=== PATIENT | female | born 1990 | race Hispanic/Latino ===

== ENCOUNTER 2018-04-18 13:02 | Inpatient (IN) | payer BC, MEDICAID, OTHER ==
[2018-04-18 13:02] VITALS: BMI 21.9
[2018-04-18 14:08] LABS: HCG,QUALITATIVE URINE NEGATIVE (NEGATIVE)
[2018-04-18 14:09] LABS: URINE BILIRUBIN NEGATIVE (NEGATIVE); URINE BLOOD NEGATIVE (NEGATIVE); URINE CLARITY Clear (Clear); URINE COLOR Straw (YELLOW); URINE GLUCOSE (UA) NORMAL (Normal); URINE LEUKOCYTE ESTERASE NEG Leu/uL (Negative); URINE PROTEIN NEGATIVE (NEGATIVE); URINE UROBILINOGEN NORMAL mg/dL (0.2-1.0)
[2018-04-18 14:10] LABS: BASO # 0.1 K/uL (0.0-0.2); BASO % 0.9 % (0.0-2.0); EOS # 0.3 K/uL (0.0-0.7); EOS % 3.5 % (0.0-4.0); HEMOGLOBIN 14.7 g/dL (11.0-16.0); LYMPH % 27.8 % (20.0-40.0); MEAN CELL VOLUME 94.1 fL (81.0-99.0); MEAN CORPUSCULAR HEMOGLOBIN 32.9 pg (27.0-31.0); MEAN PLATELET VOLUME 7.7 fL (7.2-11.7); MONO # 0.5 K/uL (0.0-0.8); MONO % 6.6 % (0.0-10.0); NEUT # 4.5 K/uL (1.8-7.0); NEUT % 61.2 % (50.0-75.0); NRBC % 0.1 % (0.0-2.0); RBC 4.45 Mil/uL (3.80-5.20); RED CELL DISTRIBUTION WIDTH 12.5 % (11.5-14.5); WHITE BLOOD COUNT 7.3 K/uL (4.8-10.8)
[2018-04-18 14:15] LABS: BARBITURATES, UR NEGATIVE (NEGATIVE); PHENCYCLIDINE, UR NEGATIVE (NEGATIVE)
[2018-04-18 14:17] LABS: BENZODIAZEPINES, UR POSITIVE (NEGATIVE); OPIATES, UR POSITIVE (NEGATIVE)
[2018-04-18 14:27] LABS: ALB/GLOB RATIO 1.3 (1.0-2.1); ALBUMIN 5.2 g/dL (3.5-5.0); ALT/SGPT 81 U/L (9-52); AST/SGOT 117 U/L (14-36); BLOOD UREA NITROGEN 8 mg/dL (7-17); CALCIUM 9.7 mg/dl (8.6-10.4); GFR AFRICAN-AMERICAN > 60; GFR NON-AFRICAN AMERICAN > 60
--- NOTE | 2018-04-18 14:46 | C.PDOC ---
History Of Present Illness Pt is here requesting detox from Alcohol, Xanax and Heroin. Time Seen by Provider: 04/18/18 13:28 Chief Complaint (Nursing): Substance Abuse History Per: Patient Onset/Duration Of Symptoms: Days Current Symptoms Are (Timing): Still Present Suicide/Self Injury Attempted (Context): None Modifying Factor(s): Alcohol, Narcotics Severity: Moderate Associated Symptoms: denies: Suicidal Thoughts, Suicidal Plan Additional History Per: Family, Prior Records Past Medical History Reviewed: Historical Data, Nursing Documentation, Vital Signs Vital Signs: Last Vital Signs Temp 98.1 F 04/18/18 13:11 Pulse 109 H 04/18/18 13:11 Resp 20 04/18/18 13:11 BP 126/88 04/18/18 13:11 Pulse Ox 95 04/18/18 14:46 - Medical History PMH: Hepatitis (C) Surgical History: Tonsillectomy Family History: States: Unknown Family Hx - Social History Hx Tobacco Use: Yes Hx Alcohol Use: Yes Hx Substance Use: Yes Review Of Systems Except As Marked, All Systems Reviewed And Found Negative. Constitutional: Negative for: Fever, Weakness Cardiovascular: Negative for: Chest Pain Respiratory: Negative for: Shortness of Breath Gastrointestinal: Negative for: Vomiting, Abdominal Pain Musculoskeletal: Negative for: Neck Pain Skin: Negative for: Rash Neurological: Negative for: Weakness, Numbness, Seizures Physical Exam - Physical Exam Appears: Non-toxic, No Acute Distress Skin: Normal Color, Warm, Dry Head: Atraumatic, Normacephalic Eye(s): bilateral: Normal Inspection, PERRL, EOMI Neck: Normal ROM, Supple Cardiovascular: Rhythm Regular Respiratory: Normal Breath Sounds, No Accessory Muscle Use Gastrointestinal/Abdominal: Soft, No Tenderness Extremity: Normal ROM, No Deformity Neurological/Psych: Oriented x3, Normal Motor, Normal Sensation ED Course And Treatment - Laboratory Results Result Diagrams: 04/18/18 14:07 04/18/18 14:07 Urine POC: Negative O2 Sat by Pulse Oximetry: 95 Pulse Ox Interpretation: Normal Progress Note: Pt is medically stable for detox admission. Disposition Counseled Patient/Family Regarding: Studies Performed, Diagnosis, Smoking Cessation - Disposition Disposition: HOSPITALIZED Disposition Time: 14:59 Condition: STABLE - Clinical Impression Clinical Impression: Alcohol dependence, Opiate dependence, Benzodiazepine abuse Decision To Admit - Pt Status Changed To: Hospital Disposition Of: Inpatient - Admit Certification Admit to Inpatient:: After my assessment, the patient will require hospitalization for at least two midnights. This is because of the severity of symptoms shown, intensity of services needed, and/or the medical risk in this patient being treated as an outpatient. - InPatient: Physician Admission Certification: I certify that this patient requires 2 or more midnights of care for the following reason:: Detox. - . Bed Request Type: Detox Admitting Physician: Srinath Allen Patient Diagnosis: Alcohol dependence, Opiate dependence, Benzodiazepine abuse
[2018-04-18] MEDS ORDERED: Aluminum Hydroxide/Magnesium Hydroxide Susp (30 mL) PO PRN (15:19)
[2018-04-18 15:20] VITALS: RESP 18
--- NOTE | 2018-04-18 15:21 | PCM.BM ---
<Emily Perez - Last Filed: 04/18/18 15:19> Treatment Plan Problems - Problems identified on initial assessmt Potential for alcohol withdrawal Date Initiated: 04/18/18 Time Initiated: 15:19 Assessment reference: NA Status: Active Priority: 1 Potential for opiate withdrawal Date Initiated: 04/18/18 Time Initiated: 15:20 Assessment reference: NA Status: Active Priority: 2 Treatment assets and liabiliti Patient Assests: ADL independent, negotiates basic needs, cognitively intact Patient Liabilities: substance abuse (ETOH,cocaine, benzo, oiates) - Milieu Protocol Maintain good personal hygiene: daily Encourage regular showers, daily Remind patient to perform daily oral care, daily Assist patient to perform ADL's Conduct patient checks and document Observation sheet: Q15 minutes Maintain personal safety: every shift Educate patient to report safety concerns to staff, every shift Monitor environment for contraband/sharps Medication safety: Monitor for expected outcome, potential side effects: every shift, Assess barriers to learning: every shift, Assess readiness for medication education: every shift <Lucy Landon - Last Filed: 04/20/18 10:42> Family Contact Family involvement: Family/SO is involved Family contact: Patient agrees to contact - Goals for Treatment Patient goals for treatment: Complete detox and transition to IOP. Discharge/Continuing Care - Education Needs Education Needs: Family Medication, Family Diagnosis/Disease Process, Family Coping Skills, Family Anger Management skills, Family Placement options, Family Community resources, Patient Medication, Patient Diagnosis/Disease Process, Patient Coping Skills, Patient Anger Management skills, Patient Placement options, Patient Community resources - Discharge Discharge Criteria: No longer exhibiting s/s of withdrawal, Reduction of target symptoms Discharge to:: Home, With Family - Treatment Team Participation Patient/Family/SO Statement: 04/20/18 10:42 "I wanna go to outpatient when I'm done." Discussed with Family/SO: No Was Patient/Family/SO present at Treatment Team Meeting: Yes
[2018-04-18] MEDS: Multiple Vitamins Tab PO SCH (15:54)
[2018-04-19] MEDS: Multiple Vitamins Tab PO SCH (09:07)
[2018-04-19] MEDS ORDERED: Oxymetazoline 0.05% Nasal Spray (30 ml) NS SCH (11:00)
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
[2018-04-19] MEDS: Oxymetazoline 0.05% Nasal Spray (30 ml) NS SCH (21:02)
[2018-04-20] MEDS: Oxymetazoline 0.05% Nasal Spray (30 ml) NS SCH ×2 (09:08→21:05)
[2018-04-20] MEDS: Multiple Vitamins Tab PO SCH (09:09)
--- NOTE | 2018-04-20 10:11 | PCM.PYCHPN ---
Psychiatric Progress Note - Psychiatric Progress Note Patient seen today, length of contact: 16 min Patient Chief Complaint: "I want to leave early" Problems Identified/Issues Discussed: The pt is seen, chart reviewed, case discussed with staff. The pt is compliant with medications and reports no side-effects. Symptoms are improving but needs more time to stabilize. After care discussed, support and psychoeducation given. Medication Change: Yes (detox changes daily) Medical Record Reviewed: Yes Mental Status Examination - Cognitive Function Orientation: Person, Place, Situation, Time Memory: Intact Attention: WNL Concentration: WNL Association: WNL Fund of Knowledge: WNL - Mood Mood: Depressed, Anxious - Affect Affect: Broad - Speech Speech: Appropriate - Formal Thought Process Formal Thought Process: No Impairment - Suicidal Ideation Suicidal Ideation: No - Homicidal Ideation Homicidal Ideation: No Goal/Treatment Plan - Goal/Treatment Plan Need for Continued Stay: Discharge may exacerbated symptoms, Severe functional impairment Progress Toward Problem(s) and Goals/Treatment Plan: Taper with methadone and Ativan Gabapentin for augmentation Lexapro for depression and anxiety As needed medications All risks, benefits and alternatives of the meds discussed, and the pt agreed and understood. Attend groups and activities Supportive therapy and psychoeducation [place] for abstinence CBT for relapse prevention Encourage MAT Refer to rehab or IOP, and self-help groups Smoking cessation with [place] Nicotine patch if needed Estimated Date of D/C: 04/22/18
[2018-04-21 08:29] LABS: ALB/GLOB RATIO 1.2 (1.0-2.1); ALBUMIN 4.5 g/dL (3.5-5.0)
[2018-04-21] MEDS: Multiple Vitamins Tab PO SCH (09:19)
[2018-04-21] MEDS: Oxymetazoline 0.05% Nasal Spray (30 ml) NS SCH ×2 (10:19→21:29)
--- NOTE | 2018-04-21 11:35 | PCM.PYCHPN ---
Psychiatric Progress Note - Psychiatric Progress Note Patient seen today, length of contact: 16 min Patient Chief Complaint: "I am OK but anxious, I want to be on suboxone" Problems Identified/Issues Discussed: The pt is seen, chart reviewed, case discussed with staff. Support given, CBT and LA used briefly However, she is evasive and superficial at times No new symptoms reported, improving slowly and needs more time No SEs from medications, risks discussed. After care discussed Medication Change: Yes (detox changes daily) Medical Record Reviewed: Yes Mental Status Examination - Cognitive Function Orientation: Person, Place, Situation, Time Memory: Intact Attention: WNL Concentration: WNL Association: WN Fund of Knowledge: WN - Mood Mood: Depressed, Anxious - Affect Affect: Broad - Speech Speech: Appropriate - Formal Thought Process Formal Thought Process: No Impairment - Suicidal Ideation Suicidal Ideation: No - Homicidal Ideation Homicidal Ideation: No Goal/Treatment Plan - Goal/Treatment Plan Need for Continued Stay: Discharge may exacerbated symptoms, Severe functional impairment Progress Toward Problem(s) and Goals/Treatment Plan: Taper with methadone and Ativan Gabapentin for augmentation Lexapro for depression and anxiety As needed medications All risks, benefits and alternatives of the meds discussed, and the pt agreed and understood. Attend groups and activities Supportive therapy and psychoeducation [place] for abstinence CBT for relapse prevention Encourage MAT Refer to rehab or IOP, and self-help groups Smoking cessation with [place] Nicotine patch if needed Estimated Date of D/C: 04/22/18
[2018-04-22] MEDS: Oxymetazoline 0.05% Nasal Spray (30 ml) NS SCH (09:08)
[2018-04-22] MEDS: Multiple Vitamins Tab PO SCH (09:09)
[2018-04-22 09:43] VITALS: BP 118/80; PULSE 85; TEMP 98; O2SAT 99
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
== END 2018-04-22 10:15 | disposition home or self-care (01) | DRG 744 ==
LOC: C.ER 13:02 → C.7D 15:01
PROVIDERS: ADMIT Psychiatry & Neurology Psychiatry; ATTEND Psychiatry & Neurology Psychiatry
PROC: HZ2ZZZZ Detoxification Services for Substance Abuse Treatment (ICD-10-PCS; principal; 2018-04-18)
PROC: HZ52ZZZ Individual Psychotherapy for Substance Abuse Treatment, Cognitive-Behavioral (ICD-10-PCS; 2018-04-18)
PROC: HZ59ZZZ Individual Psychotherapy for Substance Abuse Treatment, Supportive (ICD-10-PCS; 2018-04-18)
PROC: HZ56ZZZ Individual Psychotherapy for Substance Abuse Treatment, Psychoeducation (ICD-10-PCS; 2018-04-18)
PROC: HZ42ZZZ Group Counseling for Substance Abuse Treatment, Cognitive-Behavioral (ICD-10-PCS; 2018-04-18)
PROC: HZ46ZZZ Group Counseling for Substance Abuse Treatment, Psychoeducation (ICD-10-PCS; 2018-04-18)
PROC: GZHZZZZ Group Psychotherapy (ICD-10-PCS; 2018-04-18)
PROC: GZ58ZZZ Individual Psychotherapy, Cognitive-Behavioral (ICD-10-PCS; 2018-04-18)
PROC: GZ56ZZZ Individual Psychotherapy, Supportive (ICD-10-PCS; 2018-04-18)
DX: F10.230 Alcohol dependence with withdrawal, uncomplicated (principal); B19.20 Unspecified viral hepatitis C without hepatic coma; Y90.6 Blood alcohol level of 120-199 mg/100 ml; F11.23 Opioid dependence with withdrawal; F13.20 Sedative, hypnotic or anxiolytic dependence, uncomplicated; F32.9 Major depressive disorder, single episode, unspecified; F43.10 Post-traumatic stress disorder, unspecified; F17.210 Nicotine dependence, cigarettes, uncomplicated; Z91.410 Personal history of adult physical and sexual abuse; F14.90 Cocaine use, unspecified, uncomplicated; F12.90 Cannabis use, unspecified, uncomplicated; F41.1 Generalized anxiety disorder

== ENCOUNTER 2018-05-27 13:16 | Emergency (ER) | payer MEDICAID, OTHER ==
[2018-05-27 13:25] VITALS: BMI 24.1
[2018-05-27 13:29] VITALS: BP 110/79; PULSE 105; RESP 16; TEMP 98.3; O2SAT 95
--- NOTE | 2018-05-27 14:17 | C.PDOC ---
History Of Present Illness 28 y/o female presents to ED c/o vague epigastric abdominal pain, nausea, and malaise. Pt was admitted in the past for substance abuse and detox. She reports drinking 4-5 beers a day. Notes her father is an active alcoholic and boyfriend of 4 years is also a substance abuser. Notes she has hepatitis C and has an outpatient follow up for liver ultrasound. Denies vomiting, diarrhea, or fever. Time Seen by Provider: 05/27/18 13:40 Chief Complaint (Nursing): Abdominal Pain History Per: Patient History/Exam Limitations: no limitations Onset/Duration Of Symptoms: Days Current Symptoms Are (Timing): Still Present Location Of Pain/Discomfort: Epigastric Radiation Of Pain To:: None Quality Of Discomfort: Cramping Associated Symptoms: Nausea. denies: Vomiting, Diarrhea, Loss Of Appetite, Back Pain, Chest Pain Exacerbating Factors: None Alleviating Factors: None Recent travel outside of the [place]: No Additional History Per: Patient Abnormal Vaginal Bleeding: No Past Medical History Reviewed: Historical Data, Nursing Documentation, Vital Signs Vital Signs: Last Vital Signs Temp 98.3 F 05/27/18 13:24 Pulse 105 H 05/27/18 13:24 Resp 16 05/27/18 13:24 BP 110/79 05/27/18 13:24 Pulse Ox 95 05/27/18 17:12 - Medical History PMH: Anxiety, Depression, Hepatitis (C), Post Traumatic Stress Disorder Denies: Diabetes, HIV, HTN, Seizures, Sexually Transmitted Disease Surgical History: Tonsillectomy - [facility] Procedures DETOXIFICATION SERVICES FOR SUBSTANCE ABUSE TREATMENT (04/18/18) GROUP EXPRESSIVE MUSIC THERAPIST FOR SUBSTANCE ABUSE TREATMENT, PSYCHOEDUCATION (04/18/18) GROUP EXPRESSIVE MUSIC THERAPIST FOR SUBSTANCE ABUSE, COGNITIVE BEHAVIORAL (04/18/18) GROUP PSYCHOTHERAPY (04/18/18) INDIV PSYCHOTHERAPY FOR SUBSTANCE ABUSE TREATMENT, SUPPORT (04/18/18) INDIV PSYCHOTHERAPY FOR SUBSTANCE ABUSE, COGNITIV BEHAVIORAL (04/18/18) INDIV PSYCHOTHERAPY FOR SUBSTANCE ABUSE, PSYCHOEDUCATION (04/18/18) INDIVIDUAL PSYCHOTHERAPY, COGNITIVE-BEHAVIORAL (04/18/18) INDIVIDUAL PSYCHOTHERAPY, SUPPORTIVE (04/18/18) Family History: States: Unknown Family Hx - Social History Hx Tobacco Use: Yes Hx Alcohol Use: Yes Hx Substance Use: Yes - Immunization History Hx Tetanus Toxoid Vaccination: No Hx Influenza Vaccination: No Hx Pneumococcal Vaccination: No Review Of Systems Except As Marked, All Systems Reviewed And Found Negative. Constitutional: Positive for: Malaise. Negative for: Fever, Chills Cardiovascular: Negative for: Chest Pain, Palpitations Respiratory: Negative for: Cough, Shortness of Breath Gastrointestinal: Positive for: Nausea, Abdominal Pain. Negative for: Vomiting , Diarrhea Genitourinary: Negative for: Dysuria, Frequency, Hematuria Musculoskeletal: Negative for: Back Pain Physical Exam - Physical Exam Appears: Non-toxic, No Acute Distress Skin: Normal Color, Warm, Dry Head: Atraumatic, Normacephalic Eye(s): bilateral: Other (pupillary mydriasis) Oral Mucosa: Moist Neck: Normal ROM, Supple Cardiovascular: Rhythm Regular, No Murmur Respiratory: Normal Breath Sounds, No Rales, No Rhonchi, No Wheezing Gastrointestinal/Abdominal: Soft, No Tenderness, No Guarding, No Rebound Back: No CVA Tenderness Extremity: Normal ROM Neurological/Psych: Oriented x3, Normal Speech ED Course And Treatment O2 Sat by Pulse Oximetry: 95 Pulse Ox Interpretation: Normal Medical Decision Making Medical Decision Making: nausea and malaise Taking Xanax 1 mg QID (Rx'd as TID) or more Librium 25 mg tabs taking QD only and not for ETOH w/d symptoms Recurrent Alcohol abuse: Drinking "4-5 beers" a day (likely more) to avoid w/d symptoms and because she is living with her father (as is the boyfriend) who is a relapsed alcoholic also drinking large volume beer Suboxone: buying Suboxone 4 mg tabs QD on the [address] though recently detoxed "planning" to call Sub[facility]one Clinic tomorrow (has not since d/c "because I forgot " d/w Crisis no Detox/female beds available today preg neg. Pulilary dilation: suspect persistent narcotics abuse in addition to suboxone use- which would explain nausea, malaise, and pupilary mydriasis. triple sedation using Xanax (over prescribed) Librium, alcohol/beer and Suboxone may explain pt's persistent malaise. Disposition Doctor Will See Patient In The: Office Counseled Patient/Family Regarding: Studies Performed, Diagnosis - Disposition Referrals: Alcoholics Anonymous [Outside] [facility] [Outside] [facility] [Outside] [facility] [Outside] [facility] [Outside] Jose Carney Jr., MD [Medical Doctor] - Disposition: HOME/ ROUTINE Disposition Time: 14:18 Condition: GOOD Additional Instructions: nausea and malaise Taking Xanax 1 mg QID (Rx'd as TID) or more Librium 25 mg tabs taking QD only and not for ETOH w/d symptoms This is a TRIPLE Sedating regimen (xanax, Librium and beer) STOP Alcohol use. Take the Xanax 1 mg tabs ONLY three times a day as prescribed Recurrent Alcohol abuse: Drinking "4-5 beers" a day (likely more) to avoid w/d symptoms and because she is living with her father (as is the boyfriend) who is a relapsed alcoholic also drinking large volume beer Take the Librium 25 mg tabs every 4-6 hours as needed for alcohol withdrawal symptoms Go to Alcoholics Anonymous Meetings DAILY as available. Outpatient Hepatology (Specializing in patients with Hep C) and outpatient liver scans- Go to Outpatient Testing to schedule your imaging studies to be performed STOP Alcohol use- this is MUCH worse for your Hepatitis C liver damage- this is why Librium is prescribed. Pulilary dilation: suspect persistent narcotics abuse in addition to suboxone use- which would explain nausea, malaise, and pupilary mydriasis. Avoid narcotics use: Seek Suboxone Clinic- call [facility] to be enrolled. You already have the phone number and referral. Social: You should NOT be living with an actively drinking alcoholic. This will make your alcohol abstinence very difficult. Seek alternative living circumstances. Instructions: Alcohol Use - When Is Drinking a Problem?, Fatigue (DC), Polysubstance Abuse (DC) Forms: [employer] (Macedonian) - Clinical Impression Clinical Impression: Polysubstance abuse, Nausea, Malaise and fatigue - Scribe Statement The provider has reviewed the documentation as recorded by the Scribe KP All medical record entries made by the Scribe were at my direction and personally dictated by me. I have reviewed the chart and agree that the record accurately reflects my personal performance of the history, physical exam, medical decision making, and the department course for this patient. I have also personally directed, reviewed, and agree with the discharge instructions and disposition.
[2018-05-27 14:36] LABS: SQUAMOUS EPITHIAL 67 /hpf (0-5); URINE BACTERIA RARE (<OCC); URINE BILIRUBIN 1+ (NEGATIVE); URINE BLOOD NEGATIVE (NEGATIVE); URINE CLARITY Hazy (Clear); URINE COLOR Amber (YELLOW); URINE GLUCOSE (UA) NORMAL (Normal); URINE LEUKOCYTE ESTERASE 1+ Leu/uL (Negative); URINE PROTEIN 2+ mg/dL (NEGATIVE)
== END 2018-05-27 14:49 | disposition home or self-care (01) ==
LOC: C.ER 13:16
DX: R11.0 Nausea (principal); R53.81 Other malaise; R53.83 Other fatigue; F19.10 Other psychoactive substance abuse, uncomplicated

== ENCOUNTER 2018-06-11 19:00 | Inpatient (IN) | payer OTHER ==
[2018-06-11 19:01] VITALS: BMI 24.1
[2018-06-11] MEDS ORDERED: Sodium Chloride 0.9% 500 ML IV ONE (19:24)
--- NOTE | 2018-06-11 19:27 | C.PDOC ---
Chief Complaint (Nursing): Substance Abuse Past Medical History Vital Signs: Last Vital Signs Temp 98.0 F 06/11/18 19:07 Pulse 85 06/11/18 19:07 Resp 24 06/11/18 19:07 BP 138/78 06/11/18 19:07 Pulse Ox 98 06/11/18 19:07 - Medical History PMH: Anxiety, Depression, Hepatitis (C), Post Traumatic Stress Disorder Denies: Diabetes, HIV, HTN, Seizures, Sexually Transmitted Disease Surgical History: Tonsillectomy - [facility] Procedures DETOXIFICATION SERVICES FOR SUBSTANCE ABUSE TREATMENT (04/18/18) GROUP BUNDLING MACHINE OPERATOR FOR SUBSTANCE ABUSE TREATMENT, PSYCHOEDUCATION (04/18/18) GROUP BUNDLING MACHINE OPERATOR FOR SUBSTANCE ABUSE, COGNITIVE BEHAVIORAL (04/18/18) GROUP PSYCHOTHERAPY (04/18/18) INDIV PSYCHOTHERAPY FOR SUBSTANCE ABUSE TREATMENT, SUPPORT (04/18/18) INDIV PSYCHOTHERAPY FOR SUBSTANCE ABUSE, COGNITIV BEHAVIORAL (04/18/18) INDIV PSYCHOTHERAPY FOR SUBSTANCE ABUSE, PSYCHOEDUCATION (04/18/18) INDIVIDUAL PSYCHOTHERAPY, COGNITIVE-BEHAVIORAL (04/18/18) INDIVIDUAL PSYCHOTHERAPY, SUPPORTIVE (04/18/18) Family History: States: Unknown Family Hx - Social History Hx Tobacco Use: Yes Hx Alcohol Use: Yes Hx Substance Use: Yes - Immunization History Hx Tetanus Toxoid Vaccination: No Hx Influenza Vaccination: No Hx Pneumococcal Vaccination: No ED Course And Treatment O2 Sat by Pulse Oximetry: 98 Disposition - Disposition
--- NOTE | 2018-06-11 19:28 | C.PDOC ---
History Of Present Illness 28 year old female presents to the ER requesting substance detox. Patient complains of vomiting and anxiety. Patient states last heroin use was this morning. She denies any SI/HI, hallucinations, SOB, chest pain, or any other complaints. Chief Complaint (Nursing): Substance Abuse History Per: Patient History/Exam Limitations: no limitations Onset/Duration Of Symptoms: Hrs Current Symptoms Are (Timing): Still Present Suicide/Self Injury Attempted (Context): None Modifying Factor(s): Narcotics Associated Symptoms: Anxiety. denies: Suicidal Thoughts Past Medical History Reviewed: Historical Data, Nursing Documentation, Vital Signs Vital Signs: Last Vital Signs Temp 98.0 F 06/11/18 19:07 Pulse 85 06/11/18 19:07 Resp 24 06/11/18 19:07 BP 138/78 06/11/18 19:07 Pulse Ox 98 06/11/18 20:35 - Medical History PMH: Anxiety, Depression, Hepatitis (C), Post Traumatic Stress Disorder Denies: Diabetes, HIV, HTN, Seizures, Sexually Transmitted Disease Surgical History: Tonsillectomy - [facility] Procedures DETOXIFICATION SERVICES FOR SUBSTANCE ABUSE TREATMENT (04/18/18) GROUP BANQUET PREP COOK FOR SUBSTANCE ABUSE TREATMENT, PSYCHOEDUCATION (04/18/18) GROUP BANQUET PREP COOK FOR SUBSTANCE ABUSE, COGNITIVE BEHAVIORAL (04/18/18) GROUP PSYCHOTHERAPY (04/18/18) INDIV PSYCHOTHERAPY FOR SUBSTANCE ABUSE TREATMENT, SUPPORT (04/18/18) INDIV PSYCHOTHERAPY FOR SUBSTANCE ABUSE, COGNITIV BEHAVIORAL (04/18/18) INDIV PSYCHOTHERAPY FOR SUBSTANCE ABUSE, PSYCHOEDUCATION (04/18/18) INDIVIDUAL PSYCHOTHERAPY, COGNITIVE-BEHAVIORAL (04/18/18) INDIVIDUAL PSYCHOTHERAPY, SUPPORTIVE (04/18/18) Family History: States: No Known Family Hx - Social History Hx Tobacco Use: Yes Hx Alcohol Use: Yes Hx Substance Use: Yes - Immunization History Hx Tetanus Toxoid Vaccination: No Hx Influenza Vaccination: No Hx Pneumococcal Vaccination: No Review Of Systems Except As Marked, All Systems Reviewed And Found Negative. Cardiovascular: Negative for: Chest Pain Respiratory: Negative for: Shortness of Breath Neurological: Negative for: Headache Psych: Positive for: Anxiety, Withdrawal. Negative for: Suicidal ideation Physical Exam - Physical Exam Appears: Non-toxic Skin: Warm, Dry Head: Atraumatic, Normacephalic Eye(s): bilateral: Normal Inspection Nose: Normal Neck: Supple Chest: Symmetrical Cardiovascular: Rhythm Regular Respiratory: Normal Breath Sounds, No Rales, No Rhonchi, No Wheezing Gastrointestinal/Abdominal: Soft, No Tenderness, Other (actively vomiting on exam ) Extremity: Normal ROM Extremity: Bilateral: Atraumatic, Normal Color And Temperature, Normal ROM Neurological/Psych: Oriented x3, Normal Speech Gait: Steady ED Course And Treatment - Laboratory Results Result Diagrams: 06/11/18 19:30 06/11/18 19:30 O2 Sat by Pulse Oximetry: 98 (RA) Pulse Ox Interpretation: Normal Medical Decision Making Medical Decision Making: Orders: - Lab work - Blood work - Catapres 0.1mg PO - Ativan 0.5mg IVP - Zofran 4mg IVP - IV fluids - UA Patient instructed to call [phone] - [facility] on Detox. Patient advised to call early in the morning tomorrow. Disposition Discussed With : Lukas Murillo Doctor Will See Patient In The: Hospital Counseled Patient/Family Regarding: Diagnosis - Disposition Referrals: [facility] [Outside] Disposition: HOME/ ROUTINE Disposition Time: 20:32 Condition: STABLE Additional Instructions: TO CALL [phone] for ([facility]) for detox. Forms: [employer] (Guatemalan) - POA Present On Arrival: None - Clinical Impression Clinical Impression: Drug abuse, Opiate use, Alcohol abuse - Scribe Statement The provider has reviewed the documentation as recorded by the Scribe Orly Rodriguez All medical record entries made by the Scribe were at my direction and personally dictated by me. I have reviewed the chart and agree that the record accurately reflects my personal performance of the history, physical exam, medical decision making, and the department course for this patient. I have also personally directed, reviewed, and agree with the discharge instructions and disposition.
[2018-06-11 19:49] LABS: BASO % 0.5 % (0.0-2.0); EOS # 0.1 K/uL (0.0-0.7); EOS % 1.2 % (0.0-4.0); HEMOGLOBIN 15.5 g/dL (11.0-16.0); LYMPH # 1.8 K/uL (1.0-4.3); LYMPH % 17.4 % (20.0-40.0); MEAN CELL VOLUME 91.3 fL (81.0-99.0); MEAN CORPUSCULAR HEMOGLOBIN 31.2 pg (27.0-31.0); MEAN CORPUSCULAR HGB CONC 34.1 g/dL (33.0-37.0); MONO # 0.7 K/uL (0.0-0.8); MONO % 6.5 % (0.0-10.0); NEUT # 7.7 K/uL (1.8-7.0); NEUT % 74.4 % (50.0-75.0); NRBC % 0.2 % (0.0-2.0); RBC 4.98 Mil/uL (3.80-5.20); RED CELL DISTRIBUTION WIDTH 12.9 % (11.5-14.5); WHITE BLOOD COUNT 10.3 K/uL (4.8-10.8)
[2018-06-11 19:52] LABS: SQUAMOUS EPITHIAL 9 /hpf (0-5); URINE BACTERIA OCC (<OCC); URINE BILIRUBIN NEGATIVE (NEGATIVE); URINE BLOOD NEGATIVE (NEGATIVE); URINE CLARITY Hazy (Clear); URINE COLOR Yellow (YELLOW); URINE GLUCOSE (UA) NORMAL (Normal); URINE LEUKOCYTE ESTERASE TRACE Leu/uL (Negative); URINE PROTEIN NEGATIVE (NEGATIVE); URINE UROBILINOGEN NORMAL mg/dL (0.2-1.0)
[2018-06-11 19:59] LABS: ALB/GLOB RATIO 1.3 (1.0-2.1)
[2018-06-11 20:00] LABS: ALBUMIN 5.2 g/dL (3.5-5.0); ALT/SGPT 88 U/L (9-52); AST/SGOT 105 U/L (14-36); BLOOD UREA NITROGEN 10 mg/dL (7-17); CALCIUM 9.9 mg/dl (8.6-10.4); GFR AFRICAN-AMERICAN > 60; GFR NON-AFRICAN AMERICAN > 60
[2018-06-11 20:04] LABS: BARBITURATES, UR NEGATIVE (NEGATIVE); PHENCYCLIDINE, UR NEGATIVE (NEGATIVE)
[2018-06-11 20:06] LABS: BENZODIAZEPINES, UR POSITIVE (NEGATIVE); OPIATES, UR POSITIVE (NEGATIVE)
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
[2018-06-13] MEDS: Pantoprazole 20 mg EC Tab PO SCH (12:14)
--- NOTE | 2018-06-13 17:50 | PCM.PYCHPN ---
Psychiatric Progress Note - Psychiatric Progress Note Patient seen today, length of contact: 16 min Patient Chief Complaint: "I relapsed" Problems Identified/Issues Discussed: The pt is seen, chart reviewed, case discussed with staff. The pt is compliant with medications and reports no side-effects; pt is falling asleep well but still having trouble staying asleep at night despite being given a higher dose of trazodone. Symptoms are improving but needs more time to stabilize; pt reports still having restless legs; pt denies n/v/d, sweating, or chills. Pt complains of a possible stomach ulcer with occasional yellow vomit which she noticed while she was still using. After care discussed, support and psychoeducation given. Medication Change: Yes (detox changes daily) Medical Record Reviewed: Yes Mental Status Examination - Cognitive Function Orientation: Person, Place, Situation, Time Memory: Intact Attention: WNL Concentration: WNL Association: WNL Fund of Knowledge: WNL - Mood Mood: Depressed, Anxious - Affect Affect: Constricted - Speech Speech: Appropriate - Formal Thought Process Formal Thought Process: No Impairment - Suicidal Ideation Suicidal Ideation: No - Homicidal Ideation Homicidal Ideation: No Goal/Treatment Plan - Goal/Treatment Plan Need for Continued Stay: Discharge may exacerbated symptoms, Severe functional impairment Progress Toward Problem(s) and Goals/Treatment Plan: Taper with methadone Ativan detox for alcohol and benzos Gabapentin for augmentation Remeron for depresssion As needed medications All risks, benefits and alternatives of the meds discussed, and the pt agreed and understood. Attend groups and activities Supportive therapy and psychoeducation CA for abstinence CBT for relapse prevention, anxiety and depression Encourage MAT Refer to rehab or IOP, and self-help groups Smoking cessation with CA Nicotine patch if needed
[2018-06-14] MEDS: Pantoprazole 20 mg EC Tab PO SCH (09:14)
--- NOTE | 2018-06-14 12:43 | PCM.BM ---
<JacintoJulienneLu F - Last Filed: 06/14/18 12:39> Treatment assets and liabiliti Patient Assests: cooperative, insightful, motivated, self-reliant, ADL independent, negotiates basic needs, cognitively intact Patient Liabilities: financial problems, poor support system, relationship conflicts, substance abuse - Milieu Protocol Maintain good personal hygiene: daily Encourage regular showers, daily Remind patient to perform daily oral care, every shift Encourage regular showers, every shift Remind patient to perform daily oral care, every shift Assist patient to perform ADL's Conduct patient checks and document Observation sheet: Q15 minutes Maintain personal safety: daily Educate patient to report safety concerns to staff, daily Monitor environment for contraband/sharps, every shift Educate patient to report safety concerns to staff, every shift Monitor environment for contraband/sharps Medication safety: Monitor for expected outcome, potential side effects: daily, every shift, Assess barriers to learning: daily, every shift, Assess readiness for medication education: daily, every shift Milieu Narrative: Taper with methadone Ativan detox for alcohol and benzos Gabapentin for augmentation Remeron for depresssion As needed medications All risks, benefits and alternatives of the meds discussed, and the pt agreed and understood. Attend groups and activities Supportive therapy and psychoeducation NM for abstinence CBT for relapse prevention, anxiety and depression Encourage MAT Refer to rehab or IOP, and self-help groups Smoking cessation with NM Nicotine patch if needed Discharge/Continuing Care - Treatment Team Participation Patient/Family/SO Statement: Taper with methadone Ativan detox for alcohol and benzos Gabapentin for augmentation Remeron for depresssion As needed medications All risks, benefits and alternatives of the meds discussed, and the pt agreed and understood. Attend groups and activities Supportive therapy and psychoeducation NM for abstinence CBT for relapse prevention, anxiety and depression Encourage MAT Refer to rehab or IOP, and self-help groups Smoking cessation with NM Nicotine patch if needed <Srinath Allen - Last Filed: 06/14/18 14:36> - Diagnosis (1) Opiate use Status: Acute Interventions: 06/14/18 14:36 * Assess 7x/week regarding severity of withdrawal * Educate regarding risks, benefits, side effects and alternatives of medications * Use Motivational Interviewing for abstinence * Use CBT for relapse prevention * Medication management for withdrawal symptoms * Encourage medication assisted treatment * (2) Alcohol dependence Status: Acute Interventions: 06/14/18 14:36 * Assess 7x/week regarding severity of withdrawal * Educate regarding risks, benefits, side effects and alternatives of medications * Use Motivational Interviewing for abstinence * Use CBT for relapse prevention * Medication management for withdrawal symptoms * Encourage medication assisted treatment *
--- NOTE | 2018-06-14 13:41 | RAD ---
HISTORY: COMPARISON: No prior. TECHNIQUE: Chest PA and lateral FINDINGS: LINES AND TUBES: None. LUNG AND PLEURA: The lungs are hyperinflated and there is peribronchial thickening with chronic changes in both lungs. No focal consolidation. No pleural effusion or pneumothorax. HEART AND MEDIASTINUM: The heart is not enlarged. The hilar and mediastinal contours are within normal limits. SKELETAL STRUCTURES: The bony structures are within normal limits for the patient's age. VISUALIZED UPPER ABDOMEN: Normal. OTHER FINDINGS: None. IMPRESSION: No active pulmonary disease. COPD.
--- NOTE | 2018-06-14 14:36 | PCM.PYCHPN ---
Psychiatric Progress Note - Psychiatric Progress Note Patient seen today, length of contact: 16 min Patient Chief Complaint: "I am a little better" Problems Identified/Issues Discussed: The pt is seen, chart reviewed, case discussed with staff. The pt is compliant with medications and reports no side-effects; pt is falling asleep well with the Seroquel. Symptoms are improving but needs more time to stabilize. After care discussed, support and psychoeducation given; pt would like to attend inpatient rehab. CXR done She has a seizure risk but doing well now Medication Change: Yes (detox changes daily) Medical Record Reviewed: Yes Mental Status Examination - Cognitive Function Orientation: Person, Place, Situation, Time Memory: Intact Attention: WNL Concentration: WNL Association: WNL Fund of Knowledge: WNL - Mood Mood: Depressed, Anxious - Affect Affect: Constricted - Speech Speech: Appropriate - Formal Thought Process Formal Thought Process: No Impairment - Suicidal Ideation Suicidal Ideation: No - Homicidal Ideation Homicidal Ideation: No Goal/Treatment Plan - Goal/Treatment Plan Need for Continued Stay: Discharge may exacerbated symptoms, Severe functional impairment Progress Toward Problem(s) and Goals/Treatment Plan: Taper with methadone Ativan detox for alcohol and benzos Seroquel for insomnia Gabapentin for augmentation Remeron for depresssion As needed medications All risks, benefits and alternatives of the meds discussed, and the pt agreed and understood. Attend groups and activities Supportive therapy and psychoeducation [facility] for abstinence CBT for relapse prevention, anxiety and depression Encourage MAT Refer to rehab or IOP, and self-help groups Smoking cessation with [facility] Nicotine patch if needed Estimated Date of D/C: 06/16/18
[2018-06-15] MEDS ORDERED: Magnesium Hydroxide Susp 30 ml UD PO ONE (08:55)
[2018-06-15] MEDS: Pantoprazole 20 mg EC Tab PO SCH (09:29)
--- NOTE | 2018-06-15 14:36 | PCM.PYCHPN ---
Psychiatric Progress Note - Psychiatric Progress Note Patient seen today, length of contact: 16 min Patient Chief Complaint: "I am anxious" Problems Identified/Issues Discussed: The pt is seen, chart reviewed, case discussed with staff. The pt is compliant with medications and reports no side-effects. Symptoms are improving but needs more time to stabilize. Pt attends groups and activities. Support given, psycho-education provided. After care discussed. Medication Change: Yes (detox changes daily) Medical Record Reviewed: Yes Mental Status Examination - Cognitive Function Orientation: Person, Place, Situation, Time Memory: Intact Attention: WNL Concentration: WNL Association: WNL Fund of Knowledge: WNL - Mood Mood: Depressed, Anxious - Affect Affect: Constricted - Speech Speech: Appropriate - Formal Thought Process Formal Thought Process: No Impairment - Suicidal Ideation Suicidal Ideation: No - Homicidal Ideation Homicidal Ideation: No Goal/Treatment Plan - Goal/Treatment Plan Need for Continued Stay: Discharge may exacerbated symptoms, Severe functional impairment Progress Toward Problem(s) and Goals/Treatment Plan: Taper with methadone Ativan detox for alcohol and benzos Seroquel for insomnia Gabapentin for augmentation Remeron for depresssion As needed medications All risks, benefits and alternatives of the meds discussed, and the pt agreed and understood. Attend groups and activities Supportive therapy and psychoeducation [place] for abstinence CBT for relapse prevention, anxiety and depression Encourage MAT Refer to rehab or IOP, and self-help groups Smoking cessation with [place] Nicotine patch if needed Estimated Date of D/C: 06/16/18
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
[2018-06-16] MEDS: Pantoprazole 20 mg EC Tab PO SCH (09:29)
[2018-06-16 11:35] VITALS: BP 139/79; PULSE 95; RESP 18; TEMP 98; O2SAT 100
== END 2018-06-16 12:15 | disposition home or self-care (01) | DRG 744 ==
LOC: C.ER 19:00 → C.7D 22:09
PROC: HZ2ZZZZ Detoxification Services for Substance Abuse Treatment (ICD-10-PCS; principal; 2018-06-11)
PROC: HZ52ZZZ Individual Psychotherapy for Substance Abuse Treatment, Cognitive-Behavioral (ICD-10-PCS; 2018-06-11)
PROC: HZ59ZZZ Individual Psychotherapy for Substance Abuse Treatment, Supportive (ICD-10-PCS; 2018-06-11)
PROC: HZ56ZZZ Individual Psychotherapy for Substance Abuse Treatment, Psychoeducation (ICD-10-PCS; 2018-06-11)
PROC: HZ42ZZZ Group Counseling for Substance Abuse Treatment, Cognitive-Behavioral (ICD-10-PCS; 2018-06-11)
PROC: HZ46ZZZ Group Counseling for Substance Abuse Treatment, Psychoeducation (ICD-10-PCS; 2018-06-11)
PROC: GZHZZZZ Group Psychotherapy (ICD-10-PCS; 2018-06-11)
PROC: GZ58ZZZ Individual Psychotherapy, Cognitive-Behavioral (ICD-10-PCS; 2018-06-11)
PROC: GZ56ZZZ Individual Psychotherapy, Supportive (ICD-10-PCS; 2018-06-11)
DX: F10.230 Alcohol dependence with withdrawal, uncomplicated (principal); F32.2 Major depressive disorder, single episode, severe without psychotic features; F11.23 Opioid dependence with withdrawal; Y90.2 Blood alcohol level of 40-59 mg/100 ml; F13.230 Sedative, hypnotic or anxiolytic dependence with withdrawal, uncomplicated; F43.10 Post-traumatic stress disorder, unspecified; G47.00 Insomnia, unspecified; F17.210 Nicotine dependence, cigarettes, uncomplicated; Z62.810 Personal history of physical and sexual abuse in childhood; Z81.1 Family history of alcohol abuse and dependence; F41.1 Generalized anxiety disorder

== ENCOUNTER 2018-11-03 20:39 | Emergency (ER) | payer SELFPAY ==
[2018-11-03 20:39] VITALS: BMI 24.1
[2018-11-03 21:50] VITALS: O2SAT 100
[2018-11-03] MEDS ORDERED: Alum-Mag Hydrox-Simethicone Susp (30 mL) PO STA (23:00)
[2018-11-03] MEDS ORDERED: Sodium Chloride 0.9% 1,000 ML ONE (23:17)
[2018-11-03] MEDS ORDERED: Aluminum Hydroxide/Magnesium Hydroxide Susp (30 mL) ONE (23:17)
[2018-11-03 23:25] LABS: BASO # 0.1 K/uL (0.0-0.2); EOS # 0.1 K/uL (0.0-0.7); EOS % 0.8 % (0.0-4.0); LYMPH # 2.2 K/uL (1.0-4.3); LYMPH % 24.6 % (20.0-40.0); MEAN CELL VOLUME 91.7 fL (81.0-99.0); MEAN CORPUSCULAR HEMOGLOBIN 31.4 pg (27.0-31.0); MEAN CORPUSCULAR HGB CONC 34.3 g/dL (33.0-37.0); MONO # 0.5 K/uL (0.0-0.8); MONO % 5.3 % (0.0-10.0); NEUT # 6.1 K/uL (1.8-7.0); NEUT % 68.3 % (50.0-75.0); NRBC % 0.1 % (0.0-2.0); RBC 3.81 Mil/uL (3.80-5.20); RED CELL DISTRIBUTION WIDTH 13.5 % (11.5-14.5); WHITE BLOOD COUNT 8.9 K/uL (4.8-10.8)
[2018-11-03 23:32] LABS: HCG,QUALITATIVE URINE POSITIVE (NEGATIVE); SQUAMOUS EPITHIAL 25 /hpf (0-5); URINE BACTERIA FEW (<OCC); URINE BILIRUBIN NEGATIVE (NEGATIVE); URINE BLOOD NEGATIVE (NEGATIVE); URINE CLARITY Hazy (Clear); URINE COLOR Amber (YELLOW); URINE GLUCOSE (UA) NORMAL (Normal); URINE LEUKOCYTE ESTERASE 3+ Leu/uL (Negative); URINE PROTEIN 1+ mg/dL (NEGATIVE); URINE UROBILINOGEN NORMAL mg/dL (0.2-1.0)
[2018-11-03 23:41] LABS: ALB/GLOB RATIO 1.5 (1.0-2.1); ALBUMIN 4.6 g/dL (3.5-5.0); ALT/SGPT 33 U/L (9-52); AST/SGOT 39 U/L (14-36); BLOOD UREA NITROGEN 5 mg/dL (7-17); CALCIUM 9.1 mg/dl (8.6-10.4); GFR NON-AFRICAN AMERICAN > 60; LIPASE 33 U/L (23-300)
--- NOTE | 2018-11-04 01:39 | C.PDOC ---
History Of Present Illness 28 year old female presents to the ED c/o abdominal pain associated with intermittent nausea and vomiting for the past 2 months. Patient reports symptoms worsen with alcohol consumption, states she has not drank in the past few weeks. Patient denies fever, chills, diarrhea, rash, CP, SOB, headache, back pain, dysuria, hematuria. Time Seen by Provider: 11/03/18 22:20 Chief Complaint (Nursing): Abdominal Pain History Per: Patient History/Exam Limitations: no limitations Onset/Duration Of Symptoms: Days Current Symptoms Are (Timing): Still Present Context: Other Location Of Pain/Discomfort: Diffuse Quality Of Discomfort: "Pain" Associated Symptoms: Nausea, Vomiting. denies: Diarrhea, Urinary Symptoms Exacerbating Factors: Other Recent travel outside of the [place]: No Additional History Per: Patient Abnormal Vaginal Bleeding: No Past Medical History Reviewed: Historical Data, Nursing Documentation, Vital Signs Vital Signs: Last Vital Signs Temp 97.9 F 11/03/18 21:42 Pulse 72 11/03/18 21:42 Resp 18 11/03/18 21:42 BP Pulse Ox 100 11/03/18 21:42 - Medical History PMH: Anxiety, Depression, Hepatitis (C), Post Traumatic Stress Disorder Denies: Diabetes, HIV, HTN, Seizures, Sexually Transmitted Disease Surgical History: Tonsillectomy - [facility] DETOXIFICATION SERVICES FOR SUBSTANCE ABUSE TREATMENT (06/11/18) GROUP ENVIRONMENTAL ENGINEER FOR SUBSTANCE ABUSE TREATMENT, PSYCHOEDUCATION (06/11/18) GROUP ENVIRONMENTAL ENGINEER FOR SUBSTANCE ABUSE, COGNITIVE BEHAVIORAL (06/11/18) GROUP PSYCHOTHERAPY (06/11/18) INDIV PSYCHOTHERAPY FOR SUBSTANCE ABUSE TREATMENT, SUPPORT (06/11/18) INDIV PSYCHOTHERAPY FOR SUBSTANCE ABUSE, COGNITIV BEHAVIORAL (06/11/18) INDIV PSYCHOTHERAPY FOR SUBSTANCE ABUSE, PSYCHOEDUCATION (06/11/18) INDIVIDUAL PSYCHOTHERAPY, COGNITIVE-BEHAVIORAL (06/11/18) INDIVIDUAL PSYCHOTHERAPY, SUPPORTIVE (06/11/18) Family History: States: Unknown Family Hx - Social History Hx Tobacco Use: Yes Hx Alcohol Use: Yes Hx Substance Use: Yes - Immunization History Hx Tetanus Toxoid Vaccination: No Hx Influenza Vaccination: No Hx Pneumococcal Vaccination: No Review Of Systems Constitutional: Negative for: Fever, Chills Cardiovascular: Negative for: Chest Pain Respiratory: Negative for: Cough, Shortness of Breath Gastrointestinal: Positive for: Nausea, Vomiting, Abdominal Pain. Negative for: Diarrhea Genitourinary: Negative for: Dysuria, Hematuria Skin: Negative for: Rash Neurological: Negative for: Weakness, Numbness Physical Exam - Physical Exam Appears: Non-toxic, No Acute Distress Skin: Normal Color, Warm, Dry Head: Atraumatic, Normacephalic Eye(s): bilateral: Normal Inspection Oral Mucosa: Moist Neck: Normal ROM, Supple Chest: Symmetrical Cardiovascular: Rhythm Regular Respiratory: Normal Breath Sounds, No Rales, No Rhonchi, No Wheezing Gastrointestinal/Abdominal: Soft, Tenderness (epigastric), No Guarding, No Rebound Back: No CVA Tenderness Extremity: Normal ROM, No Tenderness, No Swelling Neurological/Psych: Oriented x3, Normal Speech, Normal Cognition Gait: Steady ED Course And Treatment - Laboratory Results Result Diagrams: 11/03/18 23:21 11/03/18 23:21 O2 Sat by Pulse Oximetry: 100 (ON RA) Pulse Ox Interpretation: Normal - CT Scan/US Pelvic US Other Rad Studies (CT/US): Read By Radiologist, Radiology Report Reviewed CT/US Interpretation: Obstetric ultrasound, . Indication: , abdominal pain. Technique: Real-time ultrasound images were obtained. Findings: Single, live intrauterine gestation. Estimated gestational age 24 weeks and 2 days. heart rate 130 beats per minute. Anterior, fundal placenta. Cephalic presentation. Good tone and movement are seen. Unremarkable amniotic fluid. Impression: Single, live intrauterine gestation. No abnormality is seen. . Electronically signed on Nov 04, 2018 2:15:43 AM EST by: Law Ro M.D., Certified by ABR, MSK, Neuroradiology Progress Note: Plan: - Labs. - Maalox 30 ml PO. - Macrobid 100 mg PO. - Pepcid 20 mg IVP. Tylenol 650 mg PO. - UA. - Pelvic US. Pt found to be UCG positive- appears surprised states that " I cannot be ". Based on clinical presentation, Bhcg and transvag US tuyet be ordered. Labs/ US reviewed and results d/w pt. Pt advised follow up with [facility] for care. Pt giorgi austin stable in NAD. - Reevaluation Time: 02:29 Reassessment Condition: Improved Disposition - Disposition Disposition: HOME/ ROUTINE Disposition Time: 02:34 Condition: STABLE Additional Instructions: PLEASE FOLLOW UP N CLINIC FOR CARE TAKE VIT RETURN T0 ER IF SEVERE PAIN, BLEEDING OR WORSE Prescriptions: Nitrofurantoin Macrocrystals [Macrobid] 1 cap PO BID #14 cap Pnv No.95/Ferrous Fum/Folic AC [ Vitamins Tablet] 1 each PO DAILY #30 tablet Instructions: - [facility] Forms: [facility] (German) - Clinical Impression Clinical Impression: Gastritis, UTI (urinary tract infection) - PA / BRAND MARKETING SPECIALIST / Resident Statement MD/DO has reviewed & agrees with the documentation as recorded. - Scribe Statement The provider has reviewed the documentation as recorded by the Scribe Lukas Layton All medical record entries made by the Scribe were at my direction and personally dictated by me. I have reviewed the chart and agree that the record accurately reflects my personal performance of the history, physical exam, medical decision making, and the department course for this patient. I have also personally directed, reviewed, and agree with the discharge instructions and disposition.
[2018-11-04 02:56] VITALS: BP 114/76; PULSE 76; RESP 16; TEMP 98.2
--- NOTE | 2018-11-04 11:52 | US ---
Indication: positive UCG/ abd pain Comparison: None available Technique: Real-time ultrasound was performed through the pelvis. Findings: There is a single living fetus in cephalic presentation. Amniotic fluid volume appears within normal limits. Anterior fundal placenta. The placenta is not previa. There are no adnexal masses or cysts evident. Measurements and calculations: Fetus has a composite sonographic age of 24 weeks 2 days. This calculation is based on the biparietal diameter, head circumference, abdominal circumference, and femur length. Estimated heart rate 132.3 beats per min. Estimated weight 667.5 g. Impression: Single living fetus with a composite sonographic age of 24 weeks 2 days. Estimated heart rate 132.3 beats per min. The study was performed for emergent evaluation, and the whole anatomic survey of the fetus was not performed. This should be performed on an outpatient elective basis as clinically warranted. Preliminary impression was provided by [facility].
== END 2018-11-04 02:56 | disposition home or self-care (01) ==
LOC: C.ER 20:39
DX: O23.42 Unspecified infection of urinary tract in pregnancy, second trimester (principal); O26.892 Other specified pregnancy related conditions, second trimester; K29.70 Gastritis, unspecified, without bleeding; Z3A.24 24 weeks gestation of pregnancy